=== PATIENT | male | born 1985 | race Caucasian/White ===

== ENCOUNTER 2023-01-07 13:34 | Emergency (ER) | payer BC, OTHER ==
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
[2023-01-07 14:46] VITALS: BP 148/94; O2SAT 100
== END 2023-01-07 14:37 | disposition home or self-care (01) ==
LOC: ED 13:34
DX: S00.03XA Contusion of scalp, initial encounter (principal); S50.12XA Contusion of left forearm, initial encounter; Y04.2XXA Assault by strike against or bumped into by another person, initial encounter
CPT/HCPCS: 99281; 99283